=== PATIENT | female | born 1950 ===

== ENCOUNTER → 2020-11-04 15:49 | Outpatient (CLI) | payer MEDICARE, OTHER, SELFPAY ==
[2020-11-04 17:02] LABS: COVID19 -Nasal RAPID Negative (Negative)
== END ==
PROVIDERS: Visit Provider Physician Assistant
DX: H92.09 Otalgia, unspecified ear (principal); J34.89 Other specified disorders of nose and nasal sinuses; Z20.822 Contact with and (suspected) exposure to COVID-19
CPT/HCPCS: 87635

== ENCOUNTER 2020-11-08 11:09 | Emergency (ER) | payer MEDICARE, OTHER, SELFPAY | END 2020-11-08 11:22 | disposition left against medical advice (07) | PROVIDERS: Emergency Provider Emergency Medicine ==